=== PATIENT | male | born 1995 | race Caucasian/White ===

== ENCOUNTER 2018-06-15 19:33 | Inpatient (IN) | payer BC, OTHER ==
[~2018-06-15] VITALS: Ht 180.3 cm; Wt 138.3 kg
[2018-06-15] MEDS ORDERED: LORAZEPAM 1 MG TABLET PO PRN ×2 (22:30)
[2018-06-15] MEDS ORDERED: BUPRENORPHINE HCL 2 MG TAB.SUBL SL ONE (22:30)
[2018-06-15] MEDS ORDERED: CLONIDINE HCL 0.2 MG TABLET PO PRN (22:30)
[2018-06-15] MEDS ORDERED: LOPERAMIDE HCL 2 MG CAPSULE PO PRN ×2 (22:30)
[2018-06-15] MEDS ORDERED: BUPRENORPHINE HCL 2 MG TAB.SUBL SL PRN ×2 (22:30)
[2018-06-15] MEDS ORDERED: hydrALAZINE HCL 25 MG TABLET PO PRN (22:30)
[2018-06-15] MEDS ORDERED: ACETAMINOPHEN 325 MG TABLET PO PRN (22:30)
[2018-06-15] MEDS ORDERED: PHENOBARBITAL 60 MG TABLET PO ONE (22:30)
[2018-06-15] MEDS ORDERED: MIRALAX 17 GM POWD.PACK PO PRN (22:30)
[2018-06-15] MEDS ORDERED: METHOCARBAMOL 750 MG TABLET PO PRN (22:30)
[2018-06-15] MEDS ORDERED: IBUPROFEN 600 MG TABLET PO PRN (22:30)
[2018-06-15] MEDS ORDERED: ONDANSETRON ODT 4 MG TAB.RAPDIS SL PRN (22:30)
[2018-06-15] MEDS ORDERED: CLONIDINE HCL 0.2 MG TABLET PO ONE (22:30)
[2018-06-15] MEDS ORDERED: MAGNESIUM HYDROXIDE 30 ML LIQUID UDC PO PRN (22:30)
[2018-06-15] MEDS ORDERED: LORAZEPAM 2 MG/1 ML VIAL IM PRN (22:30)
[2018-06-15] MEDS ORDERED: diphenhydrAMINE 50 MG CAPSULE PO PRN (22:30)
[2018-06-15] MEDS ORDERED: HYDROXYZINE PAMOATE 25 MG CAPSULE PO PRN (22:30)
[2018-06-15] MEDS ORDERED: ONDANSETRON 4 MG/2 ML VIAL IM PRN (22:30)
[2018-06-15] MEDS ORDERED: MAG HYDROX/AL HYDROX/SIMETH 30 ML LIQUID UDC PO PRN (22:30)
[2018-06-15] MEDS ORDERED: DICYCLOMINE HCL 20 MG TABLET PO PRN ×2 (22:30)
[2018-06-15] MEDS ORDERED: CLON0.2T PO (23:05)
[2018-06-15] MEDS ORDERED: ALPR2TAB7 PO (23:05)
[2018-06-15] MEDS ORDERED: BUPR300T52 PO (23:05)
[2018-06-15 23:07] LABS: BASOPHILS % (AUTO) 0.8 % (0.0-2.0); EOSINOPHILS # (AUTO) 0.3 K/uL (0.0-0.7); EOSINOPHILS % (AUTO) 4.1 % (0.0-7.0); HEMATOCRIT 41.7 % (36.7-47.1); HEMOGLOBIN 14.6 g/dL (12.5-16.3); LYMPHOCYTES % (AUTO) 31.7 % (20.5-51.5); MEAN CORPUSCULAR HGB CONC 35 g/dL (32.5-36.3); MEAN CORPUSCULAR VOLUME 88.7 fL (73.0-96.2); MONOCYTES # (AUTO) 0.5 K/uL (2.0-10.0); MONOCYTES % (AUTO) 7.4 % (0.0-11.0); NEUTROPHILS # (AUTO) 3.6 K/uL (1.8-8.9); PLATELET COUNT (AUTO) 252 K/uL (152-348); WHITE BLOOD COUNT (AUTO) 6.3 K/uL (3.6-10.2)
[2018-06-15 23:16] LABS: ALANINE AMINOTRANSFERASE 70 U/L (16-63); ALKALINE PHOSPHATASE 65 U/L (50-136); AMYLASE 47 U/L (25-115); ASPARTATE AMINOTRANSFERASE 65 U/L (15-37); BILIRUBIN,TOTAL 0.4 mg/dL (0.2-1.0); CARBON DIOXIDE 33 mmol/L (21-32); CHLORIDE 98 mmol/L (98-107); CREATININE 1.2 mg/dL (0.6-1.3); GLUCOSE 88 mg/dL (74-106); LIPASE 115 U/L (73-393); POTASSIUM 3.9 mmol/L (3.5-5.1); UREA NITROGEN, BLOOD 12 mg/dL (7-18)
[2018-06-15 23:19] LABS: ETHANOL < 3 MG/DL (0-0)
[2018-06-15 23:25] LABS: THYROID STIMULATING HORMONE 0.217 mIU/mL (0.358-3.740)
[2018-06-16 00:34] VITALS: BP 155/100
[2018-06-16 01:34] VITALS: BP 148/90
[2018-06-16 02:49] LABS: *AMPHETAMINE, URINE POSITIVE (NEGATIVE); *BARBITURATE, URINE POSITIVE (NEGATIVE); *CANNABINOID, URINE NEGATIVE (NEGATIVE); *COCCAINE, URINE NEGATIVE (NEGATIVE); *OPIATE, URINE POSITIVE (NEGATIVE); *PHENCYCLIDINE SCREEN,URINE NEGATIVE (NEGATIVE)
[2018-06-16] MEDS ORDERED: PHENOBARBITAL 60 MG TABLET PO ONE (03:00)
[2018-06-16] MEDS ORDERED: BUPRENORPHINE HCL 2 MG TAB.SUBL SL ONE (03:00)
[2018-06-16 03:22] VITALS: BP 143/86
[2018-06-16 08:00] VITALS: BP 128/81
[2018-06-16] MEDS: PHENOBARBITAL 60 MG TABLET PO SCH ×3 (08:31→17:00)
[2018-06-16] MEDS: BUPRENORPHINE HCL 2 MG TAB.SUBL SL SCH ×3 (08:32→17:00)
[2018-06-16] MEDS ORDERED: MULTIVITAMINS,THERAPEUTIC TABLET PO SCH (09:00)
[2018-06-16] MEDS ORDERED: TUBERCULIN,PURIF.PROT.DERIV. 5 TU/0.1 ML TEST ID ONE (09:00)
[2018-06-16 12:00] VITALS: BP 132/86
[2018-06-16] MEDS ORDERED: KETOCONAZOLE 2% CREAM 30 GM TUBE TP SCH (14:00)
[2018-06-16 16:00] VITALS: BP 129/80
[2018-06-17 08:06] LABS: HEPATITIS B SURFACE AG Negative (Negative)
[2018-06-17] MEDS ORDERED: PHENOBARBITAL 60 MG TABLET PO SCH (09:00)
[2018-06-17] MEDS ORDERED: BUPRENORPHINE HCL 2 MG TAB.SUBL SL SCH (09:00)
[2018-06-17] MEDS ORDERED: buPROPion XL 150 MG TAB.SR.24H PO SCH (09:00)
[2018-06-18] MEDS ORDERED: PHENOBARBITAL 60 MG TABLET PO SCH (09:00)
[2018-06-18] MEDS ORDERED: BUPRENORPHINE HCL 2 MG TAB.SUBL SL SCH ×2 (09:00→15:00)
[2018-06-19] MEDS ORDERED: BUPRENORPHINE HCL 2 MG TAB.SUBL SL SCH (09:00)
[2018-06-19] MEDS ORDERED: PHENOBARBITAL 60 MG TABLET PO SCH (09:00)
[2018-06-20] MEDS ORDERED: PHENOBARBITAL 60 MG TABLET PO SCH (09:00)
[2018-06-20] MEDS ORDERED: BUPRENORPHINE HCL 2 MG TAB.SUBL SL SCH (09:00)
[2018-06-21] MEDS ORDERED: PHENOBARBITAL 60 MG TABLET PO SCH (09:00)
== END 2018-06-16 18:10 | disposition left against medical advice (07) | DRG 894 ==
LOC: SRC 20:42
PROVIDERS: ADMIT Family Medicine Addiction Medicine; ATTEND Family Medicine Addiction Medicine
PROC: HZ2ZZZZ Detoxification Services for Substance Abuse Treatment (ICD-10-PCS; principal; 2018-06-15)
PROC: HZ41ZZZ Group Counseling for Substance Abuse Treatment, Behavioral (ICD-10-PCS; 2018-06-16)
DX: F11.23 Opioid dependence with withdrawal (principal); F31.81 Bipolar II disorder; F13.230 Sedative, hypnotic or anxiolytic dependence with withdrawal, uncomplicated; F15.10 Other stimulant abuse, uncomplicated; Z79.899 Other long term (current) drug therapy; N48.1 Balanitis; Z59.0 Homelessness; I10 Essential (primary) hypertension; F41.0 Panic disorder [episodic paroxysmal anxiety]
CPT/HCPCS: 36415; 70030-TC; 80307; 80324; 80345; 80346; 80361; 83690; 83735; 84443; 85025; 86592; 86705; 86803; 87340; 87806; A4663; G0480; J8499

== ENCOUNTER 2019-01-26 13:49 | Emergency (ER) | payer BC, OTHER ==
[~2019-01-26] VITALS: Ht 180.3 cm; Wt 86.2 kg
--- NOTE | 2019-01-26 14:23 | NUR ---
PT WAS EVALUATED BY DR AMBROCIO. PT WAS D/C'd TO HOME. D/C INSTRUCTIONS GIVEN TO THE PT.
[2019-01-26 14:24] VITALS: BP 135/78
== END 2019-01-26 14:24 | disposition home or self-care (01) ==
LOC: ER 13:49
DX: L08.9 Local infection of the skin and subcutaneous tissue, unspecified (principal)
CPT/HCPCS: A4663